=== PATIENT | female | born 1950 | race African-American/Black ===

== ENCOUNTER 2017-11-10 21:30 | Emergency (ER) | payer MEDICARE, OTHER ==
[~2017-11-10] VITALS: Ht 180.3 cm; Wt 113.0 kg
[2017-11-10 22:42] LABS: BASOPHILS % 0.4 % (0.0-2.0); HEMATOCRIT. 32.7 % (36.0-48.0); LYMPHOCYTES % 9.9 % (20.0-50.0); MEAN CORPUSCULAR HEMOGLOBIN 29.3 pg (28.0-32.0); MEAN CORPUSCULAR VOLUME 86.9 fL (81.0-99.0); MEAN PLATELET VOLUME 8.4 fl (7.4-10.4); MONOCYTES % 5.9 % (2.0-8.0); NEUTROPHILS % 82.8 % (40.0-76.0); PLATELET 276 x1000/uL (130-400); RED BLOOD CELL COUNT 3.76 mill/uL (4.2-5.4); RED CELL DISTRIBUTION WIDTH 15.1 % (11.6-14.6)
[2017-11-10 22:46] LABS: CHLORIDE 105 mEq/L (98-107)
[2017-11-10 22:48] LABS: INR 1.1; PROTHROMBIN TIME 11.4 sec (9.4-11.6)
[2017-11-11] MEDS ORDERED: ONDANSETRON HCL 4MG/2ML VIAL IV ONE (00:15)
[2017-11-11 02:45] VITALS: BP 132/66
== END 2017-11-11 02:45 | disposition home or self-care (01) ==
LOC: ER 21:30
DX: R19.7 Diarrhea, unspecified (principal); R10.30 Lower abdominal pain, unspecified; E05.90 Thyrotoxicosis, unspecified without thyrotoxic crisis or storm; E11.22 Type 2 diabetes mellitus with diabetic chronic kidney disease; I12.0 Hypertensive chronic kidney disease with stage 5 chronic kidney disease or end stage renal disease; N18.6 End stage renal disease; Z86.73 Personal history of transient ischemic attack (TIA), and cerebral infarction without residual deficits; Z99.2 Dependence on renal dialysis; Z88.8 Allergy status to other drugs, medicaments and biological substances
CPT/HCPCS: 36415; 74176; 80053; 82962; 83690; 85025; 85610; 96374; 99285; J2405

== ENCOUNTER 2018-05-16 12:28 | Inpatient (IN) | payer MEDICARE, MEDICAID ==
[~2018-05-16] VITALS: Ht 177.8 cm; Wt 103.9 kg
[2018-05-16] VITALS (19 sets, daily range): BP systolic 79–132; BP diastolic 35–84
[2018-05-16] MEDS ORDERED: ONDANSETRON HCL 4MG/2ML INJ IV STA (13:32)
[2018-05-16] MEDS ORDERED: MORPHINE SULFATE 4 MG/ML CPJ (NOT FOR IM USE) IV STA (13:32)
[2018-05-16] MEDS ORDERED: SODIUM CHLORIDE 0.9% 1000ML BAG (SEPSIS BOLUS) IV ONE (13:45)
[2018-05-16 14:13] LABS: BASOPHILS % 0.9 % (0.0-2.0); EOSINOPHILS % 3.3 % (0.0-5.0); HEMATOCRIT. 25.2 % (36.0-48.0); HEMOGLOBIN. 8.2 g/dL (12.0-16.0); LYMPHOCYTES % 16.4 % (20.0-50.0); MEAN CORPUSCULAR HEMOGLOBIN 28.4 pg (28.0-32.0); MEAN CORPUSCULAR VOLUME 87.5 fL (81.0-99.0); MEAN PLATELET VOLUME 10.3 fl (7.4-10.4); MONOCYTES % 8.9 % (2.0-8.0); NEUTROPHILS % 70.5 % (40.0-76.0); PLATELET 126 x1000/uL (130-400); RED BLOOD CELL COUNT 2.88 mill/uL (4.2-5.4)
[2018-05-16 14:25] LABS: INR 1.2; PARTIAL THROMBOPLASTIN TIME 29.9 sec (23.4-31.0); PROTHROMBIN TIME 12.2 sec (9.1-11.1)
[2018-05-16 14:26] LABS: CHLORIDE 95 mEq/L (98-107)
[2018-05-16] MEDS ORDERED: PIPERACILLIN/TAZ 3.375G PREMIX 50 ML IV ONE (15:15)
[2018-05-16] MEDS ORDERED: VANCOMYCIN 1 G PREMIX 200 ML IV SCH (15:15)
[2018-05-16] MEDS ORDERED: DESMOPRESSIN ACETATE 4MCG/ML AMP IV ONE (15:30)
[2018-05-16] MEDS ORDERED: DEXTROSE 50% WATER 50ML SYRINGE IV PRN (20:00)
[2018-05-16] MEDS ORDERED: ACETAMINOPHEN 325MG TABLET PO PRN (20:00)
[2018-05-16] MEDS ORDERED: CLONIDINE 0.1MG TABLET PO PRN (20:00)
[2018-05-16] MEDS ORDERED: MORPHINE SULFATE 4 MG/ML CPJ (NOT FOR IM USE) IV PRN (20:20)
[2018-05-16] MEDS: PANTOPRAZOLE SODIUM 40 MG/VIAL IV SCH (20:44)
[2018-05-16] MEDS: BLOOD SUGAR DIAGNOSTIC STRIP TEST SCH (20:47)
[2018-05-16] MEDS: INSULIN LISPRO 100 UNITS/ML SUBCUT SCH (20:50)
[2018-05-16] MEDS ORDERED: DESMOPRESSIN ACETATE IVPB 20 MCG in SODIUM CHLORIDE 0.9% 50 ML IV SCH ×2 (21:00)
[2018-05-16] MEDS ORDERED: AMLO10TA80 MT (22:06)
[2018-05-16] MEDS ORDERED: LOSA100T14 MT (22:07)
[2018-05-16] MEDS ORDERED: LEVO50TA8 MT (22:07)
[2018-05-16] MEDS ORDERED: CLON0.3T MT (22:08)
[2018-05-16] MEDS ORDERED: ONDA4TAB50 MT (22:09)
[2018-05-16] MEDS ORDERED: CARV25TA47 MT (22:09)
[2018-05-16] MEDS ORDERED: CLOP75TA33 MT (22:09)
[2018-05-16] MEDS ORDERED: SUCR500T MT (22:09)
[2018-05-16] MEDS ORDERED: HYDR-4001 MT (22:10)
[2018-05-16] MEDS ORDERED: OMEP1CAP25 MT (22:10)
[2018-05-16] MEDS ORDERED: MAGNESIUM/ALUMINUM HYDROXIDE/SIMETHICONE 30ML UDC PO PRN (23:00)
[2018-05-16] MEDS ORDERED: ONDANSETRON HCL 4MG/2ML INJ IV PRN (23:00)
[2018-05-16] MEDS ORDERED: IPRATROPIUM/ALBUTEROL 0.5-3(2.5)MG/3ML NEB INH PRN (23:00)
[2018-05-16] MEDS ORDERED: NITROGLYCERIN 0.4MG TABLET SL SL PRN (23:00)
[2018-05-16] MEDS ORDERED: LORAZEPAM 0.5MG TABLET PO PRN (23:00)
[2018-05-16] MEDS ORDERED: NA PHOS,M-B/NA PHOS,DI-BA ENEMA 118ML PR PRN (23:00)
[2018-05-16] MEDS ORDERED: TRAMADOL 50MG TABLET PO PRN (23:00)
[2018-05-16] MEDS ORDERED: GUAIFENESIN 200MG/10ML SUGAR FREE UDC PO PRN (23:00)
[2018-05-16] MEDS: ZOLPIDEM TARTRATE 5MG TABLET PO PRN (23:05)
[2018-05-17] VITALS (52 sets, daily range): BP systolic 80–155; BP diastolic 41–88
[2018-05-17] MEDS ORDERED: SODIUM CHLORIDE 0.9% 250 ML IV SCH (01:30)
[2018-05-17] MEDS ORDERED: PHENYLEPHRINE 20 MG in DEXT 5% WATER 248 ML IV PRN (02:30)
[2018-05-17] MEDS ORDERED: SODIUM CHLORIDE 0.9% 250 ML IV ONE (02:30)
[2018-05-17] MEDS ORDERED: SODIUM CHLORIDE 0.9% 250 ML IV NR (02:30)
[2018-05-17 05:45] LABS: BASOPHILS % 1.1 % (0.0-2.0); EOSINOPHILS % 4.4 % (0.0-5.0); HEMATOCRIT. 22.3 % (36.0-48.0); HEMOGLOBIN. 7.1 g/dL (12.0-16.0); LYMPHOCYTES % 19.2 % (20.0-50.0); MEAN CORPUSCULAR HEMOGLOBIN 28.1 pg (28.0-32.0); MEAN CORPUSCULAR VOLUME 88.7 fL (81.0-99.0); MONOCYTES % 11.5 % (2.0-8.0); NEUTROPHILS % 63.8 % (40.0-76.0); PLATELET 92 x1000/uL (130-400); RED BLOOD CELL COUNT 2.51 mill/uL (4.2-5.4); RED CELL DISTRIBUTION WIDTH 17.9 % (11.6-14.6)
[2018-05-17] MEDS: BLOOD SUGAR DIAGNOSTIC STRIP TEST SCH ×4 (08:12→21:54)
[2018-05-17] MEDS: INSULIN LISPRO 100 UNITS/ML SUBCUT SCH ×4 (08:23→22:10)
[2018-05-17] MEDS: PANTOPRAZOLE SODIUM 40 MG/VIAL IV SCH ×2 (08:23→09:00)
[2018-05-17] MEDS: FOLIC ACID/VITAMIN B COMP W-C TABLET PO SCH ×2 (08:24→09:00)
[2018-05-17] MEDS: SEVELAMER CARBONATE 800 MG TABLET PO SCH ×4 (08:24→19:13)
[2018-05-17] MEDS: DOCUSATE SODIUM 100MG CAPSULE PO PRN (19:12)
[2018-05-17] MEDS: ZOLPIDEM TARTRATE 5MG TABLET PO PRN (21:55)
[2018-05-18] VITALS (26 sets, daily range): BP systolic 94–150; BP diastolic 50–85
[2018-05-18 05:49] LABS: BASOPHILS % 0.9 % (0.0-2.0); EOSINOPHILS % 3.5 % (0.0-5.0); HEMATOCRIT. 24.1 % (36.0-48.0); HEMOGLOBIN. 7.8 g/dL (12.0-16.0); LYMPHOCYTES % 16.1 % (20.0-50.0); MEAN CORPUSCULAR HEMOGLOBIN 28.4 pg (28.0-32.0); MEAN CORPUSCULAR VOLUME 88.2 fL (81.0-99.0); MEAN PLATELET VOLUME 9.9 fl (7.4-10.4); MONOCYTES % 8.4 % (2.0-8.0); NEUTROPHILS % 71.1 % (40.0-76.0); PLATELET 93 x1000/uL (130-400); RED BLOOD CELL COUNT 2.74 mill/uL (4.2-5.4); RED CELL DISTRIBUTION WIDTH 17.8 % (11.6-14.6)
[2018-05-18 06:05] LABS: CHLORIDE 101 mEq/L (98-107)
[2018-05-18 06:18] LABS: CREATINE KINASE 82 IU/L (26-192); CREATINE KINASE MB FRACTION 3.4 ng/mL (0.5-3.6)
[2018-05-18] MEDS: BLOOD SUGAR DIAGNOSTIC STRIP TEST SCH ×3 (07:50→17:34)
[2018-05-18] MEDS: SEVELAMER CARBONATE 800 MG TABLET PO SCH ×3 (08:20→17:55)
[2018-05-18] MEDS: PANTOPRAZOLE SODIUM 40 MG/VIAL IV SCH (10:42)
[2018-05-18] MEDS: DOCUSATE SODIUM 100MG CAPSULE PO PRN (10:42)
[2018-05-18] MEDS: FOLIC ACID/VITAMIN B COMP W-C TABLET PO SCH (10:42)
[2018-05-18] MEDS: INSULIN LISPRO 100 UNITS/ML SUBCUT SCH ×2 (13:10→17:56)
[2018-05-19] MEDS ORDERED: LEVOTHYROXINE SODIUM 50MCG TABLET PO SCH (07:40)
== END 2018-05-18 20:20 | disposition short-term general hospital (02) | DRG 280 ==
LOC: ER 12:28 → CVICU 15:24 → ENRESERV 18:08 → 7WST 05-18 12:04
PROVIDERS: ADMIT Internal Medicine; ATTEND Internal Medicine
PROC: 5A1D70Z Performance of Urinary Filtration, Intermittent, Less than 6 Hours Per Day (ICD-10-PCS; principal; 2018-05-17)
DX: I21.4 Non-ST elevation (NSTEMI) myocardial infarction (principal); E43 Unspecified severe protein-calorie malnutrition; J96.00 Acute respiratory failure, unspecified whether with hypoxia or hypercapnia; N18.6 End stage renal disease; K66.1 Hemoperitoneum; C25.9 Malignant neoplasm of pancreas, unspecified; C78.7 Secondary malignant neoplasm of liver and intrahepatic bile duct; D62 Acute posthemorrhagic anemia; I12.0 Hypertensive chronic kidney disease with stage 5 chronic kidney disease or end stage renal disease; E87.1 Hypo-osmolality and hyponatremia; I69.354 Hemiplegia and hemiparesis following cerebral infarction affecting left non-dominant side; R57.9 Shock, unspecified; R58 Hemorrhage, not elsewhere classified; E11.22 Type 2 diabetes mellitus with diabetic chronic kidney disease; E11.65 Type 2 diabetes mellitus with hyperglycemia; D50.9 Iron deficiency anemia, unspecified; E03.9 Hypothyroidism, unspecified; E05.90 Thyrotoxicosis, unspecified without thyrotoxic crisis or storm; E27.9 Disorder of adrenal gland, unspecified; E66.01 Morbid (severe) obesity due to excess calories; E83.51 Hypocalcemia; E87.70 Fluid overload, unspecified; K57.90 Diverticulosis of intestine, part unspecified, without perforation or abscess without bleeding; Z79.4 Long term (current) use of insulin; Z90.49 Acquired absence of other specified parts of digestive tract; Z90.710 Acquired absence of both cervix and uterus; Z99.2 Dependence on renal dialysis; Z91.040 Latex allergy status; Z91.048 Other nonmedicinal substance allergy status; Z68.32 Body mass index [BMI] 32.0-32.9, adult
CPT/HCPCS: 36415; 71045; 74176; 80048; 82550; 82553; 82962; 83540; 83550; 83605; 83735; 83880; 84145; 84443; 84484; 85044; 85379; 93005; 93306; 93970; 96365; 96375; 99291; C9113; J1815; J2270; J2370; J2405; J2543; J2597; J3370; J7030; J7040; J7060